=== PATIENT | male | born 1990 ===

== ENCOUNTER 2019-04-19 19:53 | Emergency (ER) | payer SELFPAY ==
[~2019-04-19] VITALS: Ht 172.7 cm; Wt 77.1 kg
[2019-04-19 20:07] VITALS: BP 123/80
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
--- NOTE | 2019-04-19 20:12 | NUR ---
ED Nurse Note: Pt taken for CT and xray.
--- NOTE | 2019-04-19 20:38 | NUR ---
ED Nurse Note: Pt came back from CT.
--- NOTE | 2019-04-19 20:41 | Diagnostic Imaging Report ---
Indication: Headache. Head trauma Technique: Contiguous 5 mm thick transaxial imaging of the head obtained in a Siemens Sensation [address] scanner. Soft tissue and bone windows generated. Automatic Exposure Control was utilized. Total Dose length Product (DLP): 1368.[address] Dose Index Volume (CTDIvol): 60 mGy Comparison: none Findings: The size and configuration of the cortical sulci, basal cisterns, and ventricles are within normal limits for age. There is no mass effect, midline shift, or edema identified. There is no evidence of acute hemorrhage or abnormal intra-axial or extra-axial fluid collections. The bones and soft tissues are unremarkable. Impression: No mass effect, edema or acute bleed. [facility] has communicated the preliminary results to the Emergency Department. Their findings are largely concordant with this report. Study is somewhat limited by motion The CT scanner at [facility] is accredited by the [employer] and the scans are performed using dose optimization techniques as appropriate to a performed exam including Automatic Exposure control.
--- NOTE | 2019-04-19 20:47 | Diagnostic Imaging Report ---
Indication: left shoulder pain Findings: 3 views of the left shoulder were obtained. There is a fracture of the distal left clavicle. There is a mild AC separation with the upward migration of the distal clavicle and increased distance between the clavicle and coracoid process indicative of a CC ligament disruption. Glenohumeral joint is unremarkable. IMPRESSION: Distal clavicle fracture and AC separation
--- NOTE | 2019-04-19 20:49 | Diagnostic Imaging Report ---
Indication: Left clavicle trauma Comparison: None Findings: 2 views left clavicle demonstrating an acute distal fracture of the left clavicle. There is some increased distance between the clavicle and coracoid suggestive of the disruption of the ligament. In addition there is superior 1 cm displacement of the distal clavicle at the AC joint. IMPRESSION: Acute fracture of the distal left clavicle with grade 3 AC separation
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
[2019-04-19] MEDS ORDERED: IBU800 MG PO (21:08)
[2019-04-19 21:16] VITALS: BP 123/80
--- NOTE | 2019-04-19 21:16 | NUR ---
ED Nurse Note: Pt cleared by ERMD for discharge. DC instructions/prescription was given and explained to pt and verbalized understanding of teachings. All medical deviecs such as ID band removed. Pt is AAO x4, ambulatory and left with all personal belongings.
== END 2019-04-19 21:16 | disposition home or self-care (01) ==
LOC: EMR 20:20
DX: S42.032A Displaced fracture of lateral end of left clavicle, initial encounter for closed fracture (principal); S43.402A Unspecified sprain of left shoulder joint, initial encounter; S00.93XA Contusion of unspecified part of head, initial encounter; V13.4XXA Pedal cycle driver injured in collision with car, pick-up truck or van in traffic accident, initial encounter; Y92.410 Unspecified street and highway as the place of occurrence of the external cause
CPT/HCPCS: 70450; 99284